=== PATIENT | female | born 1930 | race Caucasian/White ===

== ENCOUNTER 2017-01-11 17:01 | Emergency (ER) | payer MEDICARE, OTHER ==
[2017-01-11] MEDS ORDERED: PROMETHAZINE HCL 25 MG TABLET PO ONE (17:42)
[2017-01-11] MEDS ORDERED: OXYCODONE-ACETAMINOPHEN 5-325 MG TABLET PO ONE (17:42)
--- NOTE | 2017-01-11 17:46 | ER Document Report ---
ED Medical Screen (RME) - General Chief Complaint: Wrist Pain Stated Complaint: POSSIBLE ALERGIC REACTION Notes: Patient is complaining of extremely painful swelling of the dorsal right wrist region that began Wednesday. She has no history of gout. She did no unusual activity except on Wednesday she did cut up a chicken. Patient has a very warm pink exquisitely tender area over the dorsal aspect of the right wrist and proximal right hand. Patient is being treated for an infection in her pelvic region and is currently on acyclovir, fluconazole, and Cipro. TRAVEL OUTSIDE OF THE [place] IN LAST 30 DAYS: No - Related Data Allergies/Adverse Reactions: erythromycin base [Erythromycin Base] Allergy (Severe, Verified 01/11/17 17:40) Anaphylaxis lidocaine [Lidocaine] Allergy (Severe, Verified 01/11/17 17:40) Anaphylaxis Penicillins Allergy (Severe, Verified 01/11/17 17:40) Anaphylaxis procaine HCl [From Novocain] Allergy (Severe, Verified 01/11/17 17:40) Anaphylaxis tetracycline [Tetracycline] Allergy (Severe, Verified 01/11/17 17:40) Anaphylaxis latex [Latex] Allergy (Mild, Verified 01/11/17 17:40) Skin Redness Past Medical History - Past Medical History Cardiac Medical History: Reports: Hx Hypertension - Whitecoat hypertension, no medications. Denies: Hx Coronary Artery Disease, Hx Heart Attack Pulmonary Medical History: Denies: Hx Asthma, Hx Bronchitis, Hx COPD, Hx Pneumonia Neurological Medical History: Denies: Hx Cerebrovascular Accident, Hx Seizures Renal/ Medical History: Denies: Hx Peritoneal Dialysis Malignancy Medical History: Reports: Hx Breast Cancer - Right breast cancer,5.5 yrs ago. Arimidex x 5 yrs, stopped 3 days ago. GI Medical History: Reports: Hx Gastroesophageal Reflux Disease Musculoskeltal Medical History: Reports Hx Arthritis - back Psychiatric Medical History: Reports: Hx Anxiety, Hx Depression Past Surgical History: Reports: Hx Appendectomy, Hx Cholecystectomy, Hx Hysterectomy, Hx Lumpectomy - Breast biopsies on the right breast for breast cancer - Immunizations Hx Diphtheria, Pertussis, Tetanus Vaccination: Yes Physical Exam - Vital signs Vitals: Temp Pulse Resp BP Pulse Ox 97.8 F 117 H 18 176/95 H 96 01/11/17 17:10 01/11/17 17:10 01/11/17 17:10 01/11/17 17:10 01/11/17 17:10 Course - Vital Signs Vital signs: Temp Pulse Resp BP Pulse Ox 97.8 F 117 H 18 176/95 H 96 01/11/17 17:10 01/11/17 17:10 01/11/17 17:10 01/11/17 17:10 01/11/17 17:10
[2017-01-11 18:07] LABS: ABSOLUTE LYMPHOCYTES (AUTO) 1.7 10^3/uL (0.5-4.7); ABSOLUTE NEUT (AUTO) 11.3 10^3/uL (1.7-8.2); BASOPHILS % (AUTO) 0.3 % (0-2); EOSINOPHILS % (AUTO) 0.2 % (0-6); HEMATOCRIT 42.5 % (36.0-47.0); HGB HCT DIFFERENCE -0.5; LYMPHOCYTES % (AUTO) 12.4 % (13-45); MEAN CORPUSCULAR HEMOGLOBIN 29.6 pg (27.0-33.4); MEAN CORPUSCULAR HGB CONC 32.9 g/dL (32.0-36.0); MEAN CORPUSCULAR VOLUME 90 fl (80-97); MONOCYTES % (AUTO) 6.8 % (3-13); RED BLOOD COUNT 4.73 10^6/uL (3.72-5.28); RED CELL DISTRIBUTION WIDTH 13.6 % (11.5-14.0); SEGMENTED NEUTROPHILS % (AUTO) 80.3 % (42-78)
[2017-01-11 18:27] LABS: ALANINE AMINOTRANSFERASE 31 U/L (9-52); ALBUMIN 4.7 g/dL (3.5-5.0); ALKALINE PHOSPHATASE 100 U/L (38-126); ANION GAP 15 (5-19); ASPARTATE AMINO TRANSFERASE 36 U/L (14-36); BILIRUBIN,DIRECT 0.1 mg/dL (0.0-0.4); BILIRUBIN,TOTAL 0.5 mg/dL (0.2-1.3); BLOOD UREA NITROGEN 16 mg/dL (7-20); CALCIUM 9.6 mg/dL (8.4-10.2); CARBON DIOXIDE 26 mmol/L (22-30); CHLORIDE 101 mmol/L (98-107); CREATININE RESULT 0.75 mg/dL (0.52-1.25); GLUCOSE 147 mg/dL (75-110); POTASSIUM 3.6 mmol/L (3.6-5.0); SODIUM 141.7 mmol/L (137-145); TOTAL PROTEIN 7.5 g/dL (6.3-8.2)
[2017-01-11] MEDS ORDERED: HYDROCODONE/ACETAMINOPHEN 5-325 MG TABLET PO ONE (19:38)
--- NOTE | 2017-01-11 19:58 | ER Document Report ---
ED Hand/Wrist Injury - General Chief Complaint: Wrist Pain Stated Complaint: POSSIBLE ALERGIC REACTION Time seen by provider: 19:58 Mode of Arrival: Ambulatory Information source: Patient TRAVEL OUTSIDE OF THE [place] IN LAST 30 DAYS: No - HPI Patient complains to provider of: right wrist pain and swelling Injury to: Wrist Onset: Other - 3 days Where: Home Timing: Constant Quality of pain: Achy Severity: Moderate Pain Level: 3 Notes: Patient is an 86-year-old female who presents to the emergency room complaining of swelling with erythema and pain to her right wrist that has been going on over the past 3 days, she states she first noted some pain in the area after she was cutting some chicken at home on Wednesday, she denies any cuts or injuries, she denies a history of similar symptoms previously, no fevers, she states is painful to move the wrist, denies any decreased sensation distally, decreased strength, patient is currently being treated for on "infection in my pubic area", with acyclovir, fluconazole and ciprofloxacin - Related Data Allergies/Adverse Reactions: erythromycin base [Erythromycin Base] Allergy (Severe, Verified 01/11/17 17:40) Anaphylaxis lidocaine [Lidocaine] Allergy (Severe, Verified 01/11/17 17:40) Anaphylaxis Penicillins Allergy (Severe, Verified 01/11/17 17:40) Anaphylaxis procaine HCl [From Novocain] Allergy (Severe, Verified 01/11/17 17:40) Anaphylaxis tetracycline [Tetracycline] Allergy (Severe, Verified 01/11/17 17:40) Anaphylaxis latex [Latex] Allergy (Mild, Verified 01/11/17 17:40) Skin Redness Past Medical History - General Information source: Patient - Social History Smoking Status: Unknown if Ever Smoked Chew tobacco use (# tins/day): No Frequency of alcohol use: None Drug Abuse: None Family History: Reviewed & Not Pertinent Patient has suicidal ideation: No - Past Medical History Cardiac Medical History: Reports: Hx Hypertension - Whitecoat hypertension, no medications. Denies: Hx Coronary Artery Disease, Hx Heart Attack Pulmonary Medical History: Denies: Hx Asthma, Hx Bronchitis, Hx COPD, Hx Pneumonia Neurological Medical History: Denies: Hx Cerebrovascular Accident, Hx Seizures Renal/ Medical History: Denies: Hx Peritoneal Dialysis Malignancy Medical History: Reports: Hx Breast Cancer - Right breast cancer,5.5 yrs ago. Arimidex x 5 yrs, stopped 3 days ago. GI Medical History: Reports: Hx Gastroesophageal Reflux Disease Musculoskeltal Medical History: Reports Hx Arthritis - back Psychiatric Medical History: Reports: Hx Anxiety, Hx Depression Past Surgical History: Reports: Hx Appendectomy, Hx Cholecystectomy, Hx Hysterectomy, Hx Lumpectomy - Breast biopsies on the right breast for breast cancer - Immunizations Hx Diphtheria, Pertussis, Tetanus Vaccination: Yes Hx Pneumococcal Vaccination: 07/04/11 Review of Systems - Review of Systems Constitutional: No symptoms reported EENT: No symptoms reported Cardiovascular: No symptoms reported Respiratory: No symptoms reported Gastrointestinal: No symptoms reported Genitourinary: No symptoms reported Female Genitourinary: No symptoms reported Musculoskeletal: See HPI Skin: See HPI Hematologic/Lymphatic: No symptoms reported Neurological/Psychological: No symptoms reported -: Yes All other systems reviewed and negative Physical Exam - Vital signs Vitals: Temp Pulse Resp BP Pulse Ox 97.8 F 117 H 18 176/95 H 96 01/11/17 17:10 01/11/17 17:10 01/11/17 17:10 01/11/17 17:10 01/11/17 17:10 Interpretation: Hypertensive, Tachycardic - General General appearance: Appears well, Alert In distress: None - HEENT Head: Normocephalic, Atraumatic Eyes: Normal Conjunctiva: Normal Extraocular movements intact: Yes Eyelashes: Normal Pupils: PERRL - Respiratory Respiratory status: No respiratory distress Chest status: Nontender Breath sounds: Normal Chest palpation: Normal - Cardiovascular Rhythm: Regular Heart sounds: Normal auscultation Murmur: No - Abdominal Inspection: Normal Distension: No distension Bowel sounds: Normal Tenderness: Nontender Organomegaly: No organomegaly - Back Back: Normal, Nontender - Extremities General lower extremity: Normal inspection, Nontender, Normal color, Normal ROM , Normal temperature, Normal weight bearing. No: River's sign Wrist: Tender - Right wrist with diffuse tenderness, swelling, erythema, pain with range of motion testing and palpation, distal sensation and motor is intact with 2+ radial pulses and prescription refill - Neurological Neuro grossly intact: Yes Cognition: Normal Orientation: AAOx4 Boyd Coma Scale Eye Opening: Spontaneous Boyd Coma Scale Verbal: Oriented Nancy Coma Scale Motor: Obeys Commands Boyd Coma Scale Total: 15 Speech: Normal Motor strength normal: LUE, RUE, LLE, RLE Sensory: Normal - Psychological Associated symptoms: Normal affect, Normal mood - Skin Skin Temperature: Warm Skin Moisture: Dry Skin Color: Normal Course - Re-evaluation Re-evalutation: 01/12/17 00:57 Lab and imaging findings were discussed with patient at bedside, she was started on antibiotics for possible cellulitis of the right wrist, advised to follow-up with her primary care provider or return if symptoms worsen, patient acknowledges understanding and agreement with this plan - Vital Signs Vital signs: Temp Pulse Resp BP Pulse Ox 97.4 F 94 16 152/72 H 95 01/11/17 21:34 01/11/17 21:34 01/11/17 21:34 01/11/17 21:34 01/11/17 21:34 - Laboratory Result Diagrams: 01/11/17 17:55 01/11/17 17:55 Laboratory results interpreted by me: 01/11/17 01/11/17 17:55 17:55 WBC 14.0 H Seg Neutrophils % 80.3 H Lymphocytes % 12.4 L Absolute Neutrophils 11.3 H Glucose 147 H - Diagnostic Test Radiology reviewed: Image reviewed, Reports reviewed Discharge - Discharge Clinical Impression: Cellulitis Qualifiers: Site of cellulitis: extremity Site of cellulitis of extremity: upper extremity Laterality: right Qualified Code(s): L03.113 - Cellulitis of right upper limb Condition: Stable Disposition: HOME, SELF-CARE Instructions: Cellulitis ([facility]) Additional Instructions: Follow up with your primary care provider in one to 2 days. Return to the emergency room immediately if symptoms worsen or any additional concerns. Prescriptions: Clindamycin HCl [Cleocin 150 mg Capsule] 450 mg PO Q6 10 Days Oxycodone HCl/Acetaminophen [Percocet 5-325 mg Tablet] 1 - 2 tab PO ASDIR PRN # 15 tablet PRN Reason: Referrals: CHARIS SALDAÑA MD [Primary Care Provider] - Follow up as needed
[2017-01-11] MEDS ORDERED: HYDROCODONE/ACETAMINOPHEN 5-325 MG 6 TAB/DSPK PO PRN (21:14)
[2017-01-11] MEDS ORDERED: CLINDAMYCIN HCL 150 MG CAPSULE PO ONE (21:14)
[2017-01-11 21:39] VITALS: BP 152/72
== END 2017-01-11 21:35 | disposition home or self-care (01) ==
LOC: ER 17:01
DX: L03.113 Cellulitis of right upper limb (principal); M25.531 Pain in right wrist; M79.89 Other specified soft tissue disorders
CPT/HCPCS: 99283; 36415; 84550; 85025; 80053; 73110; L3984; A9270 ×5

== ENCOUNTER 2018-08-17 17:26 | Emergency (ER) | payer MEDICARE, OTHER ==
[2018-08-17] MEDS ORDERED: LORAZEPAM 1 MG TABLET PO ONE (18:08)
[2018-08-17] MEDS ORDERED: LORAZEPAM 0.5 MG TABLET PO ONE (18:11)
--- NOTE | 2018-08-17 18:11 | ER Document Report ---
ED Medical Screen (RME) - General Chief Complaint: Headache Stated Complaint: HEADACHE Time Seen by Provider: 08/17/18 17:59 Notes: 88 years old female had a steroid injection of the left sacroiliac joint region yesterday. Was given triamcinolone sodium. This afternoon started having headache feeling dizzy and checked the pressure it was very high therefore she called the son and came to the ED. It happened around 4:00. By the time she came to the ED around 605 according to the son she was feeling much better. Very pleasant elderly female not seems to be in any acute distress TRAVEL OUTSIDE OF THE [place] IN LAST 30 DAYS: No - Related Data Allergies/Adverse Reactions: erythromycin base [Erythromycin Base] Allergy (Severe, Verified 08/17/18 17:28) Anaphylaxis lidocaine [Lidocaine] Allergy (Severe, Verified 08/17/18 17:28) Anaphylaxis Penicillins Allergy (Severe, Verified 08/17/18 17:28) Anaphylaxis procaine HCl [From Novocain] Allergy (Severe, Verified 08/17/18 17:28) Anaphylaxis tetracycline [Tetracycline] Allergy (Severe, Verified 08/17/18 17:28) Anaphylaxis latex [Latex] Allergy (Mild, Verified 08/17/18 17:28) Skin Redness Past Medical History - Past Medical History Cardiac Medical History: Reports: Hx Hypertension - Whitecoat hypertension, no medications. Denies: Hx Coronary Artery Disease, Hx Heart Attack Pulmonary Medical History: Denies: Hx Asthma, Hx Bronchitis, Hx COPD, Hx Pneumonia Neurological Medical History: Denies: Hx Cerebrovascular Accident, Hx Seizures Renal/ Medical History: Denies: Hx Peritoneal Dialysis Malignancy Medical History: Reports: Hx Breast Cancer - Right breast cancer,5.5 yrs ago. Arimidex x 5 yrs, stopped 3 days ago. GI Medical History: Reports: Hx Gastroesophageal Reflux Disease Musculoskeltal Medical History: Reports Hx Arthritis - back Psychiatric Medical History: Reports: Hx Anxiety, Hx Depression Past Surgical History: Reports: Hx Appendectomy, Hx Cholecystectomy, Hx Hysterectomy, Hx Lumpectomy - Breast biopsies on the right breast for breast cancer - Immunizations Hx Diphtheria, Pertussis, Tetanus Vaccination: Yes Physical Exam - Vital signs Vitals: Temp Pulse Resp BP Pulse Ox 98.0 F 88 15 182/79 H 97 08/17/18 17:38 08/17/18 17:38 08/17/18 17:38 08/17/18 17:38 08/17/18 17:38 Course - Vital Signs Vital signs: Temp Pulse Resp BP Pulse Ox 98.0 F 88 15 182/79 H 97 08/17/18 17:38 08/17/18 17:38 08/17/18 17:38 08/17/18 17:38 08/17/18 17:38 Doctor's Discharge - Discharge Referrals: CHARIS SALDAÑA MD [Primary Care Provider] - Follow up as needed
[2018-08-17 18:53] LABS: ABSOLUTE LYMPHOCYTES (AUTO) 1.5 10^3/uL (0.5-4.7); ABSOLUTE MONOCYTES (AUTO) 0.6 10^3/uL (0.1-1.4); ABSOLUTE NEUT (AUTO) 5.9 10^3/uL (1.7-8.2); BASOPHILS % (AUTO) 0.4 % (0-2); EOSINOPHILS % (AUTO) 0.5 % (0-6); HEMATOCRIT 41.2 % (36.0-47.0); HEMOGLOBIN 13.7 g/dL (12.0-15.5); LYMPHOCYTES % (AUTO) 18.1 % (13-45); MEAN CORPUSCULAR HGB CONC 33.3 g/dL (32.0-36.0); MEAN CORPUSCULAR VOLUME 90 fl (80-97); MONOCYTES % (AUTO) 7.5 % (3-13); PLATELET COUNT 292 10^3/uL (150-450); RED BLOOD COUNT 4.56 10^6/uL (3.72-5.28); RED CELL DISTRIBUTION WIDTH 13.7 % (11.5-14.0); SEGMENTED NEUTROPHILS % (AUTO) 73.5 % (42-78); TOTAL CELLS COUNTED % (AUTO) 100 %; WHITE BLOOD COUNT 8.1 10^3/uL (4.0-10.5)
--- NOTE | 2018-08-17 19:01 | ER Document Report ---
ED General - General Chief Complaint: Headache Stated Complaint: HEADACHE Time Seen by Provider: 08/17/18 17:59 Notes: Patient is a 88-year-old female that presents to the emergency department for chief complaint of headache, and feeling "off". Patient states that yesterday she had a triamcinolone injection into her left SI joint, and when she woke up today, she had a headache, and felt like her balance was off over the course of the day, she called the office of the place where she had the injection, and they told her that some of the symptoms could be related to that because it can increase her blood pressure, which she does have a history of hypertension. But her symptoms persisted so she decided come to the emergency department to have this evaluated. Her son states that she is much better than she was earlier, at this time, he states that she is very sensitive in the medication and has had similar symptoms in the past. She currently rates her headache as a 2 out of 10, and improved from earlier, denies having any chest pain, shortness of breath, difficulty breathing, nausea, vomiting, or numbness or weakness or tingling in any of her extremities. Past Medical History: Hypertension, history of breast cancer Past Surgical History: Lumpectomy Social History: Denies tobacco, alcohol or drug use. Family History: Reviewed and noncontributory for presenting illness Allergies: Reviewed, see documented allergy list. REVIEW OF SYSTEMS: Other than noted above, the 12 point review of systems was reviewed with the patient and were negative, all pertinent findings are included in the HPI. PHYSICAL EXAMINATION: Vital signs reviewed, nursing noted reviewed. GENERAL: Elderly female, no acute distress HEAD: Atraumatic, normocephalic. EYES: Eyes appear normal, extraocular movements intact, sclera anicteric, conjunctiva are normal. ENT: nares patent, oropharynx clear without exudates. Moist mucous membranes. NECK: Normal range of motion, supple without lymphadenopathy LUNGS: Breath sounds clear to auscultation bilaterally and equal. No wheezes rales or rhonchi. HEART: Heart rate regular, regular rhythm, 1/6 systolic murmur. ABDOMEN: Soft, nontender, normoactive bowel sounds. No rebound, guarding, or rigidity. No masses appreciated. EXTREMITIES: Nontender, good range of motion, no pitting or edema. NEUROLOGICAL: No focal neurological deficits. Moves all extremities spontaneously Motor and sensory grossly intact on exam. Normal finger nose finger testing, normal heel banks testing. PSYCH: Normal mood, normal affect. SKIN: Warm, Dry, normal turgor, no rashes or lesions noted on exposed skin TRAVEL OUTSIDE OF THE [place] IN LAST 30 DAYS: No - Related Data Allergies/Adverse Reactions: erythromycin base [Erythromycin Base] Allergy (Severe, Verified 08/17/18 17:28) Anaphylaxis lidocaine [Lidocaine] Allergy (Severe, Verified 08/17/18 17:28) Anaphylaxis Penicillins Allergy (Severe, Verified 08/17/18 17:28) Anaphylaxis procaine HCl [From Novocain] Allergy (Severe, Verified 08/17/18 17:28) Anaphylaxis tetracycline [Tetracycline] Allergy (Severe, Verified 08/17/18 17:) Anaphylaxis latex [Latex] Allergy (Mild, Verified 08/17/18 17:28) Skin Redness Past Medical History - Social History Smoking Status: Never Smoker Chew tobacco use (# tins/day): No Frequency of alcohol use: None Drug Abuse: None Family History: Reviewed & Not Pertinent Patient has suicidal ideation: No Patient has homicidal ideation: No - Past Medical History Cardiac Medical History: Reports: Hx Hypertension - [place] hypertension, no medications. Denies: Hx Coronary Artery Disease, Hx Heart Attack Pulmonary Medical History: Denies: Hx Asthma, Hx Bronchitis, Hx COPD, Hx Pneumonia Neurological Medical History: Denies: Hx Cerebrovascular Accident, Hx Seizures Renal/ Medical History: Denies: Hx Peritoneal Dialysis Malignancy Medical History: Reports: Hx Breast Cancer - Right breast cancer,5.5 yrs ago. Arimidex x 5 yrs, stopped 3 days ago. GI Medical History: Reports: Hx Gastroesophageal Reflux Disease Musculoskeletal Medical History: Reports Hx Arthritis - back Psychiatric Medical History: Reports: Hx Anxiety, Hx Depression Past Surgical History: Reports: Hx Appendectomy, Hx Cholecystectomy, Hx Hysterectomy, Hx Lumpectomy - Breast biopsies on the right breast for breast cancer - Immunizations Hx Diphtheria, Pertussis, Tetanus Vaccination: Yes Hx Pneumococcal Vaccination: 07/04/11 Physical Exam - Vital signs Vitals: Temp Pulse Resp BP Pulse Ox 98.0 F 88 15 182/79 H 97 08/17/18 17:38 08/17/18 17:38 08/17/18 17:38 08/17/18 17:38 08/17/18 17:38 Course - Re-evaluation Re-evalutation: Patient seen and examined vital signs reviewed. Laboratory data and imaging were ordered as appropriate for the patient's presenting symptoms and complaint, with consideration of any critical or life threatening conditions that may be associated with their obtained history and exam as noted above. Results were reviewed when available and demonstrated negative CT of the head, UA negative, blood work was unremarkable The patient was re-evaluated and was stable Evaluation was most consistent with lightheadedness, medication reaction, most likely etiology given patient history of having similar episodes after receiving intra-articular injections of steroid, patient was able to ambulate, without difficulty, after her workup, no focal neurological deficits, discussed with the patient discharged home, which she was agreeable to. Results were discussed with the patient at this point, after careful consideration I feel that that patient can be discharged from the emergency department, the patient was educated treatments and reasons to return to the emergency department based on their presumed diagnosis as noted above, they were advised to followup with a primary care physician in 2-3 days. Patient was agreeable to plan of care. *Note is created using voice recognition software and may contain spelling, syntax or grammatical errors. Laboratory 08/17/18 08/17/18 08/17/18 18:40 18:40 22:34 WBC 8.1 RBC 4.56 Hgb 13.7 Hct 41.2 MCV 90 MCH 30.0 MCHC 33.3 RDW 13.7 Plt Count 292 Seg Neutrophils % 73.5 Lymphocytes % 18.1 Monocytes % 7.5 Eosinophils % 0.5 Basophils % 0.4 Absolute Neutrophils 5.9 Absolute Lymphocytes 1.5 Absolute Monocytes 0.6 Absolute Eosinophils 0.0 Absolute Basophils 0.0 Sodium 141.4 Potassium 4.5 Chloride 101 Carbon Dioxide 27 Anion Gap 13 BUN 19 Creatinine 0.75 Est GFR ( Amer) > 60 Est GFR (Non-Af Amer) > 60 Glucose 106 Calcium 10.2 Total Bilirubin 0.7 Direct Bilirubin 0.3 Neonat Total Bilirubin Not Reportable Neonat Direct Bilirubin Not Reportable Neonat Indirect Bili Not Reportable AST 37 H ALT 25 Alkaline Phosphatase 95 Total Protein 7.9 Albumin 4.6 Urine Color STRAW Urine Appearance SLIGHTLY-CLOUDY Urine pH 6.0 Ur Specific [place] 1.006 Urine Protein NEGATIVE Urine Glucose (UA) NEGATIVE Urine Ketones NEGATIVE Urine Blood NEGATIVE Urine Nitrite NEGATIVE Urine Bilirubin NEGATIVE Urine Urobilinogen NEGATIVE Ur Leukocyte Esterase SMALL H Urine WBC (Auto) 4 Urine RBC (Auto) 0 Urine Bacteria (Auto) TRACE Urine Mucus (Auto) RARE Urine Ascorbic Acid NEGATIVE Head CT 08/17/18 19:36 IMPRESSION: 1. No acute intracranial finding. 2. Cerebral atrophy and minimal changes suggesting chronic microvascular disease. TECHNICAL DOCUMENTATION: Quality ID # 436: Final reports with documentation of one or more dose reduction techniques (e.g., Automated exposure control, adjustment of the mA and/or kV according to patient size, use of iterative reconstruction technique) 2010 [employer]- All Rights Reserved - Vital Signs Vital signs: Temp Pulse Resp BP Pulse Ox 97.5 F 71 16 156/74 H 98 08/17/18 23:25 08/17/18 23:25 08/17/18 23:25 08/17/18 23:25 08/17/18 23:25 - Laboratory Result Diagrams: 08/17/18 18:40 08/17/18 18:40 Laboratory results interpreted by me: 08/17/18 08/17/18 18:40 22:34 AST 37 H Ur Leukocyte Esterase SMALL H - EKG Interpretation by Me Additional EKG results interpreted by me: EKG demonstrates sinus rhythm with a ventricular rate of 80 bpm, left axis deviation, normal intervals, no evidence of acute ischemia on this ECG. This is compared with prior EKG from 05/21/2015, without significant change. Discharge - Discharge Clinical Impression: Lightheadedness, Dizziness Condition: Stable Disposition: HOME, SELF-CARE Instructions: Dizziness ([facility]) Additional Instructions: Please return to the emergency department if you have any worsening, or concern of your symptoms. Please return to the emergency department if you develop chest pain, difficulty breathing, severe abdominal pain, or ongoing vomiting. Please follow-up with your primary care physician in 2-3 days and any other recommended physicians. If prescribed, take all medications as directed. If you have any questions or concerns do not hesitate to return the emergency department for evaluation. Referrals: CHARIS SALDAÑA MD [Primary Care Provider] - Follow up in 3-5 days
[2018-08-17 19:14] LABS: ALANINE AMINOTRANSFERASE 25 U/L (9-52); ALBUMIN 4.6 g/dL (3.5-5.0); ALKALINE PHOSPHATASE 95 U/L (38-126); ANION GAP 13 (5-19); ASPARTATE AMINO TRANSFERASE 37 U/L (14-36); BILIRUBIN,DIRECT 0.3 mg/dL (0.0-0.4); BILIRUBIN,TOTAL 0.7 mg/dL (0.2-1.3); BLOOD UREA NITROGEN 19 mg/dL (7-20); CALCIUM 10.2 mg/dL (8.4-10.2); CARBON DIOXIDE 27 mmol/L (22-30); CHLORIDE 101 mmol/L (98-107); GLUCOSE 106 mg/dL (75-110); POTASSIUM 4.5 mmol/L (3.6-5.0); SODIUM 141.4 mmol/L (137-145); TOTAL PROTEIN 7.9 g/dL (6.3-8.2)
[2018-08-17] MEDS ORDERED: ACETAMINOPHEN 325 MG TABLET PO ONE (19:40)
--- NOTE | 2018-08-17 21:38 | RADIOLOGY REPORT (SQ) ---
EXAM DESCRIPTION: CT HEAD WITHOUT IV CONTRAST COMPLETED DATE/TME: 08/17/2018 19:36 CLINICAL HISTORY: 88 years, Female, feels off balance COMPARISON: None available TECHNIQUE: Contiguous axial images of the brain were obtained without the administration of intravenous contrast. Images stored on PACS. All CT scanners at this facility use dose modulation, iterative reconstruction, and/or weight based dosing when appropriate to reduce radiation dose to as low as reasonably achievable (ALARA). [facility]: Dose Right [facility]: CareDose [facility]: Dose Right [facility]: Teradose 4D [facility]: Ring LIMITATIONS: None. Findings: Brain: No acute intracranial hemorrhage. No territorial infarct. No mass effect. Moderate cerebral atrophy. Moderate periventricular and subcortical white matter hypoattenuation most suggestive of chronic small vessel disease. Ventricles: Accounting for underlying cerebral atrophy, ventricular size appears within normal limits. Bones: No acute osseous finding. Paranasal sinuses: Well aerated. Mastoid air cells: Well aerated. Soft tissues: Within normal limits IMPRESSION: 1. No acute intracranial finding. 2. Cerebral atrophy and minimal changes suggesting chronic microvascular disease. TECHNICAL DOCUMENTATION: Quality ID # 436: Final reports with documentation of one or more dose reduction techniques (e.g., Automated exposure control, adjustment of the mA and/or kV according to patient size, use of iterative reconstruction technique) 2010 [employer]- All Rights Reserved
[2018-08-17 22:47] LABS: APPEARANCE,URINE SLIGHTLY-CLOUDY; BILIRUBIN,URINE NEGATIVE (NEGATIVE); COLOR,URINE STRAW; GLUCOSE, URINE NEGATIVE (NEGATIVE); KETONES,URINE NEGATIVE (NEGATIVE); LEUKOCYTE ESTERASE,URINE SMALL (NEGATIVE); NITRITE,URINE NEGATIVE (NEGATIVE); PROTEIN,URINE NEGATIVE (NEGATIVE); URINE SPECIFIC GRAVITY 1.006; UROBILINOGEN,URINE NEGATIVE mg/dL (<2.0)
[2018-08-17 23:31] VITALS: BP 156/74
--- NOTE | 2018-08-19 10:43 | EKG REPORT ---
SEVERITY:- ABNORMAL ECG - SINUS RHYTHM LEFT VENTRICULAR HYPERTROPHY : Confirmed by: Li Henderson 19-Aug-2018 10:42:36
== END 2018-08-17 23:29 | disposition home or self-care (01) ==
LOC: ER 17:26
DX: R42 Dizziness and giddiness (principal); G31.9 Degenerative disease of nervous system, unspecified; R51 Headache; I10 Essential (primary) hypertension; M47.9 Spondylosis, unspecified; Z85.3 Personal history of malignant neoplasm of breast; Z91.040 Latex allergy status; Z87.892 Personal history of anaphylaxis; Z88.1 Allergy status to other antibiotic agents; Z88.4 Allergy status to anesthetic agent; Z88.0 Allergy status to penicillin
CPT/HCPCS: 93005; 99284; 36415; 85025; 80053; 81001; 70450; 93010; A9270 ×2